=== PATIENT | female | born 1995 | race Caucasian/White ===

== ENCOUNTER 2025-05-04 07:44 | Inpatient (IN) | payer OTHER ==
[2025-05-04] VITALS (14 sets, daily range): BP systolic 127–160; BP diastolic 71–92; PULSE 57–85; RESP 13–23; TEMP 98–98.3; O2SAT 96–99
[~2025-05-04] VITALS: Ht 167.6 cm; Wt 127.0 kg
[2025-05-04 08:38] LABS: MEAN PLATELET VOLUME 9.3 FL (7.4-10.4); RED CELL DISTRIBUTION WIDTH 13.5 % (11.5-14.5)
[2025-05-04 08:55] LABS: CREATININE 0.66 MG/DL (0.40-0.90); TOTAL CARBON DIOXIDE 23.9 MMOL/L (24-32); eCRCL 117 ML/MIN; eGFR > 90 ML/MIN
--- NOTE | 2025-05-04 10:52 | Physician Documentation ---
History of Present Illness General Chief Complaint: Abdominal Pain Stated Complaint: GALL STONES Time Seen by MD: 10:51 OK to notify your PCP?: No Source: patient, RN notes reviewed Mode of Arrival: POV Exam Limitations: no limitations History of Present Illness Initial Comments 29 year old female, with known cholelithiasis, presents to the ED complaining of increased right upper abdominal pain. Patient reports she has had pain for awhile but visited another emergency room 1-2 weeks ago and was found to have gallstones on ultrasound. She was then seen by Dr. Hebert, general surgeon, who recommended she visit the ED again if pain increases. Patient states she has been unable to eat most foods, because pain becomes severe. She was prescribed [place] but has only taken it sparingly, because she does not like to take it. Denies any fever vomiting. Medication Reconciliation Allergies: Coded Allergies: No Known Allergies (Unverified , 05/04/25) Scheduled PRN Ondansetron HCl (Ondansetron HCl), 1 TAB PO Q4HPRN PRN for nausea/vomiting Discontinued Medications Ciprofloxacin HCl (Ciprofloxacin HCl), 1 TAB PO, (Reported) Metronidazole* (Flagyl*), 1 TAB PO TID, (Reported) Past Medical History Past Medical History: Cholelithiasis Past Surgical History: no surgical history Drug Use: none Lives In: Home Review of Systems All Other Systems at this time: Reviewed and Negative ROS Right-sided abdominal pain as well as other positive symptoms noted in the HPI. Otherwise all other systems are reviewed and negative. Physical Exam Physical Exam Vital Signs: RN Vital Signs have been reviewed: Yes, Temperature: 97.6, Source: Temporal, Heart Rate: 70, Respiratory Rate: 18, BP: 132/91, Pulse Oximetry: 99, Weight: 127.000 Pulse Oximetry Reflects: adequate oxygenation Physical Exam VITALS: Reviewed and as above. GENERAL: Alert, no apparent distress. HEENT: Normocephalic, atraumatic, PERRL, EOMI, dry mucosa RESPIRATORY: Lungs clear, normal breath sounds, no respiratory distress. CHEST: No accessory muscle use, no retractions CV: Regular rate, rhythm, no edema, no murmur, No: JVD GI: RUQ TTP. Soft, bowels sounds present, no rebound, guarding, or rigidity MUSCULOSKELETAL No deformities, no edema SKIN: Warm and dry, no rash NEURO: Oriented x4, No motor or sensory deficit PSYCH: Normal mood and affect, no agitation Progress Progress Note 1107: case discussed with Dr. Hebert, surgeon, who agrees with plan for hospitalist admission and will see the patient for surgery. 1107: Hospitalist paged [phone]: Case discussed with internal medicine resident, who agrees to evaluate the patient for admission. Results/Orders Reviewed/noted all lab results: Yes Results/Orders Orders - OHLJP FATIMA MD Page Hospitalist (05/04/25 11:07) Fill Out Med Reconciliation (05/04/25 11:07) Completed Orders - JP TAVARES MD Hcg, Ur Ql (05/04/25 08:01) Cbc/Diff (05/04/25 08:01) Amylase (05/04/25 08:01) Lipase (05/04/25 08:01) CMP (05/04/25 08:01) Ua W/Microscopic, Cult If Ind (05/04/25 11:16) Cult Urine + Qulin Ct (05/04/25 11:51) Hgb A1c (05/04/25 08:15) Laboratory Tests Test 05/04/25 08:15 05/04/25 11:16 White Blood Count 6.2 Red Blood Count 4.83 Hemoglobin 13.4 Hematocrit 40.8 Mean Corpuscular Volume 84.6 Mean Corpuscular Hemoglobin 27.8 Mean Corpuscular Hemoglobin Concent 32.8 L Red Cell Distribution Width 13.5 Platelet Count 385 Mean Platelet Volume 9.3 Neutrophils (%) (Auto) 58.4 Lymphocytes (%) (Auto) 32.3 Monocytes (%) (Auto) 6.7 Eosinophils (%) (Auto) 2.2 Basophils (%) (Auto) 0.4 Neutrophils # (Auto) 3.6 Lymphocytes # (Auto) 2.0 Monocytes # (Auto) 0.4 Eosinophils # (Auto) 0.1 Basophils # (Auto) 0.0 CBC Comment Sodium Level 136 Potassium Level 4.1 Chloride Level 104 Carbon Dioxide Level 23.9 L Anion Gap 8 Blood Urea Nitrogen 12 Creatinine 0.66 Estimated GFR/1.73 m2 > 90 BUN/Creatinine Ratio 18.2 Glucose Level 94 Hemoglobin A1c 5.4 Calcium Level 8.7 Total Bilirubin 0.4 Aspartate Amino Transf (AST/SGOT) 21 Alanine Aminotransferase (ALT/SGPT) 46 Alkaline Phosphatase 109 Total Protein 7.5 Albumin 3.5 Globulin 4.0 Albumin/Globulin Ratio 0.9 L Amylase Level 48 Lipase 35 Chemistry Comments Urine Specimen Description Cln catch midstream Urine Color Yellow Urine Clarity Slightly cloudy Urine pH 5.5 Urine Specific [place] 1.025 Urine Protein Negative Urine Glucose (UA) Negative Urine Ketones Negative Urine Occult Blood Negative Urine Nitrite Negative Urine Bilirubin Negative Urine Urobilinogen 0.2 Urine Leukocyte Esterase Trace H Urine RBC 0-2 Urine WBC 0-4 Urine Squamous Epithelial Cells Moderate Urine Transitional Epithelial Cells Few Urine Renal Cells Few Urine Bacteria Few Urine Yeast Few Urine Culture Indicated Indicated Volume Urine Centrifuged 10 ml Urine HCG, Qualitative Negative Urine Comment Microbiology Date/Time Source Procedure Growth Status 05/04/25 11:51 Urine Clean Catch Midstream Urine Culture - Final MIXED STAS ISOLATED.... Complete EKG/XRAY/CT/US/VASC/MRI Ultrasound : Interpreted By: radiologist Ultrasound of: abdomen Impression Technique: Real-time ultrasound imaging of the abdomen was performed with grayscale and color Doppler. Indication: RUQ pain Comparison: None Findings: Liver measures 16 cm. It is increased in echogenicity and echotexture without focal mass. Portal vein is normal in caliber and demonstrates normal hepatopetal flow. Gallbladder demonstrates cholelithiasis, sludge. There is no pericholecystic fluid. The wall thickness is normal. The common bile duct measures 6 mm. No intrahepatic biliary ductal dilatation. The right kidney measures 11.3 cm. There is no hydronephrosis or sonographic evidence of nephrolithiasis. The visualized portion of the pancreas is unremarkable. The visualized portion of the IVC is unremarkable. Impression: Cholelithiasis and sludge Echogenic liver which can be seen with hepatic steatosis, cirrhosis. Common bile duct diameter at the upper limits of normal measuring 6 mm. Reviewed by myself. Medical Decision Making Additional info obtained from: old records (No prior visits) Findings The patient is a 29-year-old female with a history of gallstones, the patient's complaint is abdominal pain she has continued pain from her gallstones case was discussed with the surgeon on-call. Imaging of the ultrasound was reviewed by myself. Labs were reviewed. Private prior hospitalizations were reviewed. The patient's pulse oximetry was interpreted as normal and her laboratory monitor was interpreted as a sinus rhythm the patient will be admitted to the hospitalist case has been discussed with the hospitalist. Departure Time of Disposition: 11:07 Disposition: 09 ADMITTED INPATIENT Admitted to Inpatient Unit: yes, to hospitalist Impression: Primary Impression: Cholelithiasis Qualified Codes: K80.80 - Other cholelithiasis without obstruction Additional Impression: Abdominal pain Qualified Codes: R10.9 - Unspecified abdominal pain Condition: Fair Referrals: NO PRIMARY CARE PROVIDER (PCP) Prescriptions Ondansetron HCl (Ondansetron HCl) 4 Mg Tablet 1 TAB PO Q4HPRN PRN for nausea/vomiting for 3 Days, #18 TAB 0 Refills Prov: MEAGAN PENG, HOWIE 05/05/25 Signature Scribe Signature: Scribed for Jp Tavares MD by Kitty Jang . 05/04/25 11:11 Attestation: The note accurately reflects work and decisions made by me.Jp Tavares MD 05/10/25 10:44 JP TAVARES MD May 04, 2025 10:52 KITTY CHOI May 04, 2025 11:15
--- NOTE | 2025-05-04 11:19 | RADIOLOGY REPORT ---
Technique: Real-time ultrasound imaging of the abdomen was performed with grayscale and color Doppler . Indication: RUQ pain Comparison: None Findings: Liver measures 16 cm. It is increased in echogenicity and echotexture without focal mass. Portal vei n is normal in caliber and demonstrates normal hepatopetal flow. Gallbladder demonstrates cholelithiasis, sludge. There is no pericholecystic fluid. The wall thicknes s is normal. The common bile duct measures 6 mm. No intrahepatic biliary ductal dilatation. The right kidney measures 11.3 cm. There is no hydronephrosis or sonographic evidence of nephrolithia sis. The visualized portion of the pancreas is unremarkable. The visualized portion of the IVC is unremarkable. Impression: Cholelithiasis and sludge Echogenic liver which can be seen with hepatic steatosis, cirrhosis. Common bile duct diameter at the upper limits of normal measuring 6 mm.
[2025-05-04 11:34] LABS: LEUKOCYTE ESTERASE ,URINE TRACE (Neg); NITRITES, URINE NEGATIVE (Neg); OCCULT BLOOD,URINE NEGATIVE (Neg)
[2025-05-04 11:36] LABS: URINE HCG NEGATIVE (NEG)
[2025-05-04 11:45] LABS: UA COLLECTION TYPE CLN CATCH MIDSTREAM
[2025-05-04 11:51] LABS: RENAL CELLS, URINE FEW /HPF; SQUAMOUS EPITHELIAL CELL,UR MODERATE /LPF (FEW); YEAST FEW /HPF (NEGATIVE)
[2025-05-04] MEDS ORDERED: [UNRECOGNIZED DRUG - CODE] PO (13:14)
[2025-05-04] MEDS ORDERED: METR-159 PO (13:14)
[2025-05-04] MEDS ORDERED: BUPIVAcaine/PF 2.5mg/ml (0.25%) 10ml vial ONE (17:02)
[2025-05-04] MEDS ORDERED: hydrALAZINE 20mg/ml inj. IV PRN (17:05)
[2025-05-04] MEDS: ringers solution, lacted 1,000 ML IV SCH (17:05)
[2025-05-04] MEDS ORDERED: labetalol 20mg/4ml (5mg/ml) syringe IV PRN (17:05)
[2025-05-04] MEDS ORDERED: ondansetron/PF 4mg/2ml inj IV PRN ×3 (17:05→18:50)
[2025-05-04] MEDS ORDERED: HYDROmorphone/PF 0.2 MG/ML SYRINGE IV PRN ×2 (17:05)
--- NOTE | 2025-05-04 17:12 | PROGRESS NOTE ---
Progress Note ID Providers to CC ~ Progress Note Progress Note: discussed procedure including risks/benefits/alternatives DANILO VAUGHAN MD May 04, 2025 17:12
[2025-05-04] MEDS ORDERED: fentaNYL /PF 50mcg/ml 5ml ampule ONE (17:39)
[2025-05-04] MEDS ORDERED: midazolam 1 mg/ML 2ml injection ONE (17:39)
[2025-05-04] MEDS ORDERED: propofol inj 20 ML IV ONE (17:40)
[2025-05-04] MEDS ORDERED: rocuronium 10mg/ml inj IV ONE (17:40)
[2025-05-04] MEDS ORDERED: potassium Cl 20 mEq SR tablet PO PRN ×2 (17:55)
[2025-05-04] MEDS ORDERED: potassium Cl 40MEQ/1/2NS 520ml 520 ML IV PRN (17:55)
[2025-05-04] MEDS ORDERED: magnesium sulf-water 4G/100mL 100 ML IV PRN (17:55)
[2025-05-04] MEDS ORDERED: magnesium sulf-water 2g/50mL 50 ML IV PRN (17:55)
[2025-05-04] MEDS ORDERED: magnesium hydroxide 30ml (MOM) UD suspension PO PRN (17:55)
[2025-05-04] MEDS ORDERED: mag hydrox/Alum hydrox/simeth 30ml oral suspension PO PRN (17:55)
[2025-05-04] MEDS ORDERED: magnesium Cl slow-release 64mg tablet PO PRN (17:55)
[2025-05-04] MEDS ORDERED: dexamethasone sod phosphate 4mg/ml inj. ONE (18:04)
[2025-05-04] MEDS ORDERED: glycopyrrolate 0.2mg/ml inj ONE (18:06)
[2025-05-04] MEDS ORDERED: ondansetron inj. 24 MG in normal saline 250ml IV soln 228 ML IV SCH (18:10)
--- NOTE | 2025-05-04 18:13 | HISTORY AND PHYSICAL-Residence ---
History & Physical Providers to CC Resident Creating Document: MEAGAN FOX, RES CC: LAVERN LEMOS MD ~ History of Present Illness Primary Medical Doctor: dr watters Reason for Admit\Complaint: Abdominal pain History of Present Illness A 29-year-old female with a past medical history of cholelithiasis presented to the ED with abdominal pain that worsened over the last couple of days. Patient states that she had gradual worsening of abdominal pain over the last couple of months that became unbearable in the last two days. Patient describes as sharp abdominal pain with a severity of 10/10 with no radiation but which aggravates on eating food and relieves on taking pain medications. Patient was unable to eat had multiple episodes of nausea and vomitings with greenish yellowish liquid. Patient follows Dr. Rios as outpatient who recommended to come to the ER when she has abdominal pain. Allergies: Coded Allergies: No Known Allergies (Unverified , 05/04/25) Home Medications Home Medications Active Reported Flagyl* (Metronidazole) 500 Mg Tablet 1 Tab PO TID Ciprofloxacin HCl (Ciprofloxacin) 500 Mg Tablet 1 Tab PO Past Medical History Past Medical History Cholelithiasis Past Surgical History Surgical History Comment None Past Social History Social History Comment Denies smoking, illicit drugs Former marijuana smoker Consumes alcohol occasionally Goes to [place] for primary care Dr. Hebert for surgery Drug Use: None Lives In: Home ROS ROS Constitutional: No fever, chills, dizziness, weight gain or loss Eyes: No pain, erythema, discharge, blurring of vision ENT: No sore throat, epistaxis, tinnitus Cardiovascular: no Shortness of breath. Chest pressure, chest discomfort, palpitations, syncope, lower extremity edema, paroxysmal nocturnal dyspnea Respiratory: No Shortness of breath and cough present, No hemoptysis Gastrointestinal: Decreased appetite, nausea, vomitings, abdominal pain. No hematemesis, abdominal pain, bloating, melena or fresh blood Musculoskeletal:chronmic edema. Integumentary: No change in skin, hair, nails. No swelling, bruising, abrasions Neurologic: No headache, neck pain, numbness or tingling of the extremities, weakness Psychiatric: No delusions, depression, loss of interest in normal activity or change in sleep pattern, hallucinations, suicidal ideations Endocrine: No fatigue, weakness, polydipsia, polyuria, change in appetite, heat or cold intolerance, sweating, dry skin Exam Vitals: Vital Signs Date Time Temp Pulse Resp B/P (MAP) Pulse Ox O2 Delivery O2 Flow Rate FiO2 05/04/25 17:16 67 16 125/79 (94) 98 0 05/04/25 13:07 98.0 General: General: Morbidly obese young female, Alert, awake, oriented, in acute distress HEENT: PERRLA, no icterus, pallor, lymphadenopathy, carotid bruit Respiratory system: Bilateral vesicular breath sounds heard, no adventitious breath sounds CVS: S1-S2 heard, no murmurs/rubs/gallop GI: Tenderness in the right upper quadrant, Soft, no organomegaly, no guarding/rigidity, bowel sounds present, abdominal striae present. Neuro: No focal neurological deficits present Extremities: No edema cyanosis clubbing/deformities Skin: Warm and dry Diagnostic Data Last Recorded Lab Results: 05/04/25 0815 05/04/25 0815 Advance Care Planning Advanced Care plannin - 30 Minutes (I spent 20 minutes discussing various resuscitative measures and the patient decided to be full code) Additional Plan Assessment: A 29-year-old female with a past medical history of cholelithiasis presented to the ED with abdominal pain. On further imaging patient was found to have cholelithiasis and sludge with a gallstone in the neck of the gallbladder. Patient is admitted for the evaluation management of symptomatic cholelithiasis. Plan: Symptomatic cholelithiasis Ultrasound abdomen: Cholelithiasis and sludge,Echogenic liver which can be seen with hepatic steatosis, cirrhosis. Common bile duct diameter at the upper limits of normal measuring 6 mm. Normal lipase, leukocyte count, follow up with procalcitonin Pain management, IV Zofran 4 mg q.6h p.r.n. for nausea and vomitings IV fluids at [address] Hebert consulted, awaiting recommendations Asymptomatic bacteriuria Follow up with urinalysis Morbid obesity Possible sleep apnea Outpatient follow up Code status: Full code Diet: NPO DVT prophylaxis: SCD Disposition: Admit to surgical, awaiting Dr. Hebert's recommendations Meagan Fox MD Internal Medicine, PGY 2 Date of Service: May 04, 2025 Billing Provider: LAVERN LEMOS MD, SIVA, RES May 04, 2025 18:13
[2025-05-04] MEDS ORDERED: ondansetron/PF 4mg/2ml inj ONE (18:44)
--- NOTE | 2025-05-04 19:04 | OPERATIVE REPORT ---
Operative Report Providers to CC ~ Date of Procedure: May 04, 2025 Pre-Operative Diagnosis: Biliary colic Post-Operative Diagnosis SAME as PRE-Op Procedure Performed alpesh uribe Surgeon: yang Exhibit Builder none Anesthesiologist: Gibran Muniz Type of Anesthesia: General Findings: adhesions Estimated Blood Loss: min Specimen Removed: DANILO Winters MD May 04, 2025 19:04
[2025-05-04] MEDS ORDERED: HYDROmorphone inj. 0.5 MG/0.5 ML DISP.SYRIN IV PRN (19:10)
[2025-05-04] MEDS ORDERED: HYDROcodone/acetaminophen 5mg/325mg tablet PO PRN (19:10)
[2025-05-04] MEDS: acetaminophen 1,000mg/100ml IV 100 ML IV PRN (19:17)
[2025-05-04] MEDS: ondansetron/PF 4mg/2ml inj IV PRN (19:18)
[2025-05-04] MEDS: morphine 4 MG/ML inj SYRINge IV PRN (19:43)
[2025-05-04] MEDS: K and/or MAG REPLACEMENT MC SCH (20:00)
[2025-05-04] MEDS: docusate sod 100mg capsule PO SCH (21:33)
[2025-05-04] MEDS: HYDROcodone/acetaminophen 5mg/325mg tablet PO PRN (21:33)
[2025-05-04] MEDS: normal saline 1000ml 1,000 ML IV SCH (21:35)
[2025-05-04] MEDS: ceFOXitin 1 GM/D5W 50mL IVPB 50 ML IV SCH (23:34)
[2025-05-05 01:08] VITALS: BP 120/67; PULSE 69; RESP 16; TEMP 98
[2025-05-05 02:00] VITALS: BP 120/67; PULSE 69; RESP 18; TEMP 98; O2SAT 99
[2025-05-05 05:35] LABS: MEAN PLATELET VOLUME 9.1 FL (7.4-10.4); RED CELL DISTRIBUTION WIDTH 13.5 % (11.5-14.5)
[2025-05-05 05:43] LABS: CREATININE 0.75 MG/DL (0.40-0.90); TOTAL CARBON DIOXIDE 20.2 MMOL/L (24-32); eCRCL 103 ML/MIN; eGFR > 90 ML/MIN
[2025-05-05 06:56] VITALS: BP 129/75; PULSE 66; RESP 20; TEMP 97.9; O2SAT 99
[2025-05-05 07:00] VITALS: RESP 20; O2SAT 99
--- NOTE | 2025-05-05 07:57 | CONSULTATION ---
DATE OF CONSULTATION: 05/04/2025 DICTATING PHYSICIAN: Kit Hebert MD REASON FOR CONSULTATION: Evaluation of abdominal pain. HISTORY OF PRESENT ILLNESS: The patient is a 29-year-old female with recurrent abdominal discomfort, found to have cholelithiasis, who came into the ER for evaluation. On further questioning, has right upper quadrant pain, worsened by food intake. PAST MEDICAL HISTORY: Unremarkable. PAST SURGICAL HISTORY: Negative. HOME MEDICATIONS: Include Flagyl and Cipro. ALLERGIES: None. SOCIAL HISTORY: No tobacco or drug use. REVIEW OF SYSTEMS: Please see H and P. PHYSICAL EXAMINATION: GENERAL: Well-nourished female, in no distress. VITAL SIGNS: Unremarkable. HEART: Regular rate and rhythm. LUNGS: Clear to auscultation. ABDOMEN: Shows mild upper abdominal discomfort. EXTREMITIES: Unremarkable. NEUROLOGIC: Nonfocal. LABORATORY DATA: Include WBC of 6, hematocrit of 40, platelet count 385. Chemistries: Include normal LFTs, lactase 35. IMAGING STUDIES: Gallbladder ultrasound shows presence of cholelithiasis. IMPRESSION: Symptomatic cholelithiasis. PLAN: * Admit. * Hydrate. * Robotic cholecystectomy. Kit Hebert MD TID: [id number] RECEIPT: [id number] AZRA/PILO/NATANAEL
--- NOTE | 2025-05-05 08:02 | OPERATIVE REPORT ---
DATE OF SURGERY: 05/04/2025 DICTATING PHYSICIAN: Kit Hebert MD PREOPERATIVE DIAGNOSIS: Symptomatic cholelithiasis. POSTOPERATIVE DIAGNOSIS: Symptomatic cholelithiasis. PROCEDURES PERFORMED: Robo jojo. SURGEON: Kit Hebert MD CLICKING MACHINE OPERATOR: None. ANESTHESIA: General/Dr. Muniz. DRAINS: None. INDICATIONS FOR OPERATION: A 29-year-old female with right upper abdominal discomfort, found to have symptomatic cholelithiasis robo jojo. INTRAOPERATIVE FINDINGS: . DESCRIPTION OF PROCEDURE: The patient was placed supine on the operating table. After induction of general anesthesia and placement of endotracheal tube, the abdomen was prepped and draped. A subumbilical incision was then made and Shoaib port placed using open technique and pneumoperitoneum was begun by insufflation of CO2. Additional ports were placed in the left lower quadrant and right lateral abdomen. Robot was then brought to the field. Camera port docked. Camera placed, camera targeted. Additional ports were then docked and instruments placed. Abdomen was then explored. Gallbladder fundus was grasped and retracted cephalad. Adhesions were subsequently taken down. Cystic duct identified, isolated, ligated, clipped and divided the cystic artery. The gallbladder was mobilized off the gallbladder fossa. Hemostasis was found to be adequate. Robotic instruments were then removed. Robot was undocked from the field. Gallbladder was placed in Endobag using laparoscope. Abdomen was copiously irrigated with large amount of antibiotic-containing solution. Hemostasis was found to be adequate gallbladder removed. Pneumoperitoneum was then evacuated. Wounds were closed in layers. Skin was closed with subcuticular stitch. Dressing was applied. The patient was transferred to recovery in stable condition. Kit Hebert MD TID: [id number] RECEIPT: [id number] AZRA/DIANN/MAVERICK
[2025-05-05 10:00] VITALS: BP 120/74; PULSE 66; RESP 16; TEMP 97.8; O2SAT 100
[2025-05-05] MEDS ORDERED: ONDA-103 PO (12:04)
[2025-05-05 17:30] VITALS: RESP 18
--- NOTE | 2025-05-05 18:02 | DISCHARGE SUMMARY-Residence ---
Discharge Summary Providers to CC Resident Creating Document: ELIZABETSIDRAMEAGAN AMOS, RES CC: LAVERN LEMOS MD ~ Discharge Summary Admission Diagnosis: Biliary colic Hospital Course DATE OF ADMISSION: 05/04/25 DATE OF DISCHARGE: 05/05/25 Discharge Diagnosis\Comment: Symptomatic cholelithiasis Asymptomatic bacteriuria Morbid obesity with possible sleep apnea Operations\Procedures: None Consultants: Dr. Hebert (surgeon) Complications: None Condition on DC: Stable New Medications: Ondansetron HCl (Ondansetron HCl) 4 Mg Tablet 1 TAB PO Q4HPRN PRN for nausea/vomiting for 3 Days, #18 TAB 0 Refills Discontinued Medications: Ciprofloxacin HCl (Ciprofloxacin HCl) 500 Mg Tablet 1 TAB PO Metronidazole* (Flagyl*) 500 Mg Tablet 1 TAB PO TID Discharge Summary: A 29-year-old female with a PMH of cholelithiasis presented to the ED with abdominal pain nausea and vomitings. On further imaging patient was found to have cholelithiasis and sludge with a gallstone in the neck of the bladder. Surgeon was consulted and cholecystectomy was performed on 05/04/2025. Patient has bowel movements returned today with the patient being able to tolerate regular diet that was gradually advanced from clear liquids. Patient did have a bowel movement and is able to pass flatus. Patient is hemodynamically stable for discharge Physical examination at discharge: General: Morbidly obese young female, Alert, awake, oriented, in acute distress HEENT: PERRLA, no icterus, pallor, lymphadenopathy, carotid bruit Respiratory system: Bilateral vesicular breath sounds heard, no adventitious breath sounds CVS: S1-S2 heard, no murmurs/rubs/gallop GI: Multiple surgical incisions which are clean and dry and covered in surgical bandages, Soft, no organomegaly, no guarding/rigidity, bowel sounds present, abdominal striae present. Neuro: No focal neurological deficits present Extremities: No edema cyanosis clubbing/deformities Skin: Warm and dry Labs at discharge: WBC: 9.6, H/H: 13.2/39.7 Sodium: 135, potassium: 4.2, BUN: Eight, creatinine: 0.75 Imaging: Abdominal ultrasound:Cholelithiasis and sludge. Echogenic liver which can be seen with hepatic steatosis, cirrhosis. Common bile duct diameter at the upper limits of normal measuring 6 mm. Discharge medications can be found above patient is discharged home with the following recommendations: Follow up with primary care within two weeks of discharge. Follow up with Dr. Hebert, within two weeks of discharge. Wound care per the surgeon. Avoid lifting weights for at least two weeks from now. Return to ER in view of pus discharge or increased abdominal pain. *Problems/Diagnosis: (1) Cholelithiasis Status: Acute (2) Abdominal pain Status: Acute Total Time Spent on D/C: > 30 Minutes Date of Service: May 05, 2025 Billing Provider: LAVERN LEMOS MD Problem Qualifiers (1) Cholelithiasis: Cholelithiasis location: other site Biliary obstruction: without biliary obstruction Qualified Codes: K80.80 - Other cholelithiasis without obstruction (2) Abdominal pain: Abdominal location: unspecified location Qualified Codes: R10.9 - Unspecified abdominal pain MEAGAN PENG, RES May 05, 2025 18:02
--- NOTE | 2025-05-05 18:42 | PROGRESS NOTE ---
Progress Note ID Providers to CC ~ Progress Note Progress Note: doing well/cont supportive care DANILO VAUGHAN MD May 05, 2025 18:42
== END 2025-05-05 18:20 | disposition home or self-care (01) | DRG 418 ==
LOC: ER 07:45 → ED HOLD 12:47 → SUR 3N 20:10
PROVIDERS: ADMIT Family Medicine; ATTEND Family Medicine
PROC: 8E0W4CZ Robotic Assisted Procedure of Trunk Region, Percutaneous Endoscopic Approach (ICD-10-PCS; 2025-05-04)
PROC: 0FT44ZZ Resection of Gallbladder, Percutaneous Endoscopic Approach (ICD-10-PCS; principal; 2025-05-04 17:39)
DX: K80.20 Calculus of gallbladder without cholecystitis without obstruction (principal); Z68.42 Body mass index [BMI] 45.0-49.9, adult; E66.01 Morbid (severe) obesity due to excess calories; G47.39 Other sleep apnea; Z79.899 Other long term (current) drug therapy
CPT/HCPCS: 96361; 96374; 96375; 99285; Z7506; Z7508; 36415; 76700; 80048; 80053; 81001; 81025; 82150; 83036; 83605; 83690; 83735; 84145; 85025; 87040; 87081; 87088; A4215; A4615; A4618; A6402; A7000; G0378; J0131; J0690; J0694; J0780; J1100; J2250; J2270; J2405; J2704; J2710; J3010; J3490; J7030; J7120